=== PATIENT | female | born 1995 | race Caucasian/White ===

== ENCOUNTER 2023-03-31 14:57 | Outpatient (CLI) | payer OTHER, SELFPAY ==
[2023-04-03 06:43] LABS: FSH 5.2 mIU/mL (***); LH 11.7 mIU/mL (***); Prolactin 9.4 ng/mL (***)
[2023-04-03 11:36] LABS: Testosterone Total 53 ng/dL (2-45)
== END 2023-03-31 14:58 | disposition home or self-care (01) ==
LOC: ANHGOSHLAB 14:59
PROVIDERS: PCP Family Medicine; Visit Provider Family Medicine
DX: N91.5 Oligomenorrhea, unspecified (principal); N94.6 Dysmenorrhea, unspecified; L68.0 Hirsutism
CPT/HCPCS: 36415; 83001; 83002; 84146; 84403

== ENCOUNTER 2023-05-09 14:36 | Emergency (ER) | payer OTHER, SELFPAY ==
[2023-05-09 14:40] VITALS: BP 124/76; PULSE 93; RESP 16; TEMP 37.1; O2SAT 100
--- NOTE | 2023-05-09 14:52 | ED.URI ---
HPI - URI/Sore Throat General Chief Complaint: Upper Respiratory Infection Stated Complaint: upper respiratory/ears Time Seen by Provider: 05/09/23 15:11 Source: patient and RN notes reviewed Mode of arrival: ambulatory Limitations: no limitations History of Present Illness HPI Narrative: 28-year-old female presents with concern for cough, postnasal drainage, head congestion, swollen glands, sore throat, ear pain. Reports symptoms started for 5 days ago. She reports she has taken Sudafed which has helped her sinus congestion. She reports she feels like it is ?moved to her chest? MD elicited complaint: cough and sore throat Related Data Home Medications Medication Instructions Recorded Confirmed amitriptyline 10 mg tablet 20 mg PO DAILY 05/09/23 05/09/23 nortriptyline 10 mg capsule 10 mg PO DAILY 05/09/23 05/09/23 pregabalin 25 mg capsule (Lyrica) 25 mg PO TID 05/09/23 05/09/23 ubrogepant 100 mg tablet (Ubrelvy) See Rx Instructions .Route .COMPLEX 05/09/23 05/09/23 Allergies Allergy/AdvReac Type Severity Reaction Status Date / Time vancomycin Allergy Intermediate Rash Verified 05/09/23 15:00 codeine Allergy Mild Rash Verified 05/09/23 14:59 Sulfa (Sulfonamide AdvReac Nausea and Verified 05/09/23 14:59 Antibiotics) Vomiting Review of Systems Review of Systems: CONSTITUTIONAL: Denies malaise, chills, sweats, or fever. EYES: Denies visual changes, redness, or discharge. ENT: Reports rhinorrhea, congestion, otalgia and sore throat. CARDIOVASCULAR: Denies chest pain, palpitations, or edema. RESPIRATORY: Reports cough and chest congestion. Denies dyspnea. GASTROINTESTINAL: Denies abdominal pain, nausea, vomiting, diarrhea SKIN: Denies rash or itching. MUSCULOSKELETAL: Reports myalgia. NEUROLOGIC: Denies headache. All systems reviewed & are unremarkable except as noted in HPI and below PMFSH Social History Social History Smoking status: Never smoker Alcohol intake: current Drinks per week: 1 Substance use: never Lack of Transportation: No Lack of Food: Never True Current Housing: I Have Housing Concerned About Future Housing: No Difficulty Paying Gas/Electric Bills: No Difficulty Paying for Meds: No Currently Unemployed: No Education: Bachelor's Degree Difficulty w/ Childcare or Family Care: No Living arrangements: alone Occupation/Education: occupation Comments At time of signature, agree with nursing past medical, surgical, social and family history. There is no relevant family history pertinent to the presenting complaint Exam Narrative: GENERAL: Well-appearing, well-nourished, and in no acute distress. HEAD: Normocephalic EYES: PERRLA, conjunctivae clear ENT: Nares clear, turbinates edematous and erythematous, clear discharge. Mucous membranes moist. TM pearly mccurdy with sharp light reflex bilaterally; no tragal tenderness. Oropharynx erythematous without lesions. Tonsils not enlarged and without exudate, no drooling, no hoarseness, no trismus, uvula midline. NECK: Supple. No lymphadenopathy CHEST: Clear to auscultation, breath sounds equal. No wheezing, rhonchi, rales, or stridor. No respiratory distress, speaks in full sentences. HEART: Regular rate and rhythm. No murmur heard. SKIN: Warm, dry, no rash. NEURO: Alert and oriented x3. PSYCH: Normal mood and affect Course Course Emergency Course: Patient is aware of diagnosis, understands and agrees to treatment plan. Anticipatory guidance given. Patient agrees to follow-up as directed and is aware of reasons to seek care at the emergency department. Portions of this record may have been created with voice recognition software Level of Care: Express Care Visit Vital Signs Vital signs: Vital Signs Temperature 98.7 F 05/09/23 14:40 Pulse Rate 93 05/09/23 14:40 Respiratory Rate 16 05/09/23 14:40 Blood Pressure 124/76 05/09/23 14:40 Pulse Oximetr
== END 2023-05-09 15:35 | disposition home or self-care (01) ==
PROVIDERS: Emergency Provider Nurse Practitioner; PCP Family Medicine
DX: J40 Bronchitis, not specified as acute or chronic (principal)
CPT/HCPCS: 87081; 87880; 99213; G0463